=== PATIENT | male | born 1980 | race African-American/Black ===

== ENCOUNTER 2024-11-08 19:25 | Emergency (ER) | payer OTHER, MEDICAID ==
[~2024-11-08] VITALS: Ht 170.2 cm; Wt 69.0 kg
[2024-11-08 19:39] VITALS: BP 139/69; PULSE 82; RESP 16; TEMP 36.8; O2SAT 98
== END 2024-11-08 21:24 ==
LOC: ER 19:25
DX: Z02.89 Encounter for other administrative examinations (principal)
CPT/HCPCS: 93005; 99283